=== PATIENT | female | born 1980 | race Caucasian/White ===

== ENCOUNTER 2023-04-06 07:46 | Outpatient (OUT) | payer OTHER, SELFPAY ==
[2023-04-06 09:05] LABS: Basophils Percent Auto 0.5 % (0.2-2.0); Eosinophils Absolute Auto 0.2 10^3/uL (0.0-0.7); Eosinophils Percent Auto 2.6 % (0.9-7.0); Hematocrit 39.4 % (36.0-48.0); Hemoglobin 13.3 g/dL (12.0-16.0); Immature Granulocytes Abs Auto 0.01 10^3/uL (0.00-0.03); Immature Granulocytes Pct Auto 0.2 % (0.0-0.5); Lymphocytes Absolute Auto 2.2 10^3/uL (1.2-3.8); Mean Corpuscular HGB Conc 33.8 g/dL (29.9-35.2); Mean Corpuscular Hemoglobin 30.4 pg (26.7-34.0); Mean Platelet Volume 9.3 fL (9.5-13.5); Monocytes Absolute Auto 0.5 10^3/uL (0.3-0.8); Monocytes Percent Auto 8.2 % (1.7-12.0); Neutrophils Absolute Auto 2.9 10^3/uL (1.4-6.5); Neutrophils Percent Auto 50.5 % (43.0-75.0); Platelet Count 201 10^3/uL (150-450); Red Blood Count 4.38 10^6/uL (4.20-5.40); Red Cell Distribution Width 12.4 % (11.0-15.0); White Blood Count 5.7 10^3/uL (4.0-11.0)
[2023-04-06 09:22] LABS: INR 0.97; Partial Thromboplastin Time 26.6 sec (22.3-36.2); Prothrombin Time 10.3 sec (9.0-11.6)
[2023-04-06 09:51] LABS: Alanine Aminotransferase 17 U/L (14-59); Albumin Globulin Ratio 1.1; Albumin Level 3.8 g/dL (3.4-5.0); Alkaline Phosphatase 52 U/L (46-116); Anion Gap 11.8; Aspartate Amino Transferase 11 U/L (15-37); BUN Creatinine Ratio 11.1; Bilirubin Direct 0.1 mg/dL (0.0-0.2); Bilirubin Total 0.3 mg/dL (0.2-1.0); Carbon Dioxide 28.3 mmol/L (21.0-32.0); Chloride 106 mmol/L (98-107); Estimated GFR (African America >60 (>=60); Estimated GFR (Non-African Ame >60 (>=60); Globulin 3.4 g/dL; Glucose 88 mg/dL (74-106); Potassium 4.1 mmol/L (3.5-5.1); Sodium 142 mmol/L (136-145); Total Protein 7.2 g/dL (6.4-8.2)
== END 2023-04-06 07:47 | disposition home or self-care (01) ==
PROVIDERS: Obstetrics & Gynecology; PCP Family Medicine
DX: Z01.812 Encounter for preprocedural laboratory examination (principal); N92.0 Excessive and frequent menstruation with regular cycle; N94.10 Unspecified dyspareunia; R10.2 Pelvic and perineal pain; N94.6 Dysmenorrhea, unspecified
CPT/HCPCS: 36415; 80048; 80076; 85025; 85610; 85730; G0463

== ENCOUNTER 2023-04-15 06:10 | Day surgery (SDC) | payer OTHER, SELFPAY ==
[2023-04-06 08:25] VITALS: BP 108/68; PULSE 85; RESP 16; TEMP 36.3; O2SAT 98; BMI 26.5
--- NOTE | 2023-04-06 08:50 | PM.PRESUREVA ---
History of Present Illness History of Present Illness Chief complaint: SURGICAL Narrative: Patient presents for preadmission testing. The patient reports heavy painful periods. The patient states she had tubal ligation, unilateral salpingectomy, and endometrial ablation but continues to have pain. She denies nausea, vomiting, fever, or any other complaints. Review of Systems ROS Narrative REVIEW OF SYSTEMS: Negative except as stated in HPI, ten or more systems reviewed. Constitutional: No fever , chills, weakness ENT: No sore throat or epistaxis Cardiovascular: No edema, chest pain, palpitations, or activity intolerance Respiratory: No shortness of breath, cough, or wheezing Musculoskeletal: No joint pain or swelling Genitourinary: No dysuria or hematuria Neurological: No numbness, tingling, weakness, or headache Psychiatric: No mood changes PFSH PFSH Medical History (Updated 04/06/23 @ 08:30 by Evelyn Reed NP) Surgical History (Updated 04/06/23 @ 08:30 by Evelyn Reed NP) Family History (Updated 04/06/23 @ 08:30 by Evelyn Reed NP) Other Family history of Alzheimer's disease Family history of heart disease Family history of lung cancer Family history of myocardial infarction Family history of stroke Social History (Updated 04/06/23 @ 08:25 by Evelyn Reed NP) Within the past year, how often did you have a drink containing alcohol: monthly or less Smoking status: Former smoker Non-prescribed substance use: denies use 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 Highest level of school completed/degree received: Associate degree: occupational, technical, vocational program Meds Home Medications and Allergies Allergies Allergy/AdvReac Type Severity Reaction Status Date / Time latex Allergy Rash Verified 04/06/23 08:21 Exam Narrative Exam Narrative: Constitutional: Awake, alert, comfortable, well-appearing, nontoxic, interactive, vital signs as charted Head: Normocephalic, atraumatic Neck: Supple, normal appearance, normal range of motion, no meningeal signs, no lymphadenopathy Respiratory: No respiratory distress, breath sounds clear Cardiovascular: Regular rate and rhythm, strong and regular heart tones Abdomen: Nontender, normal bowel sounds, soft, no CVA tenderness Musculoskeletal: Normal gait, no swelling or edema Skin: No rashes or induration, no lesions, only visible skin inspected Neuro: No neurological deficits, normal sensation Psychiatric: Oriented ?3, normal affect Constitutional Vital Signs - 24 hr 04/06/23 08:25 Temperature 97.3 F L Pulse Rate 85 Respiratory Rate 16 Blood Pressure [Right Arm] 108/68 Pulse Oximetry 98 Oxygen Delivery Method Room Air Assessment and Plan Assessment and Plan (1) Dysmenorrhea: (2) Dyspareunia: (3) Menorrhagia: (4) Pelvic pain: Plan Da Sylvia-assisted laparoscopic hysterectomy, possible cystoscopy, possible bilateral salpingo-oophorectomy, possible exploratory laparotomy scheduled with Dr. Weems 04/15/2023.
[2023-04-15] VITALS (13 sets, daily range): BP systolic 86–104; BP diastolic 51–78; PULSE 65–100; RESP 10–18; TEMP 36–37.4; O2SAT 96–99; BMI 25.8
[2023-04-15 06:21] LABS: Basophils Percent Auto 0.6 % (0.2-2.0); Eosinophils Absolute Auto 0.2 10^3/uL (0.0-0.7); Eosinophils Percent Auto 2.4 % (0.9-7.0); Hematocrit 38.9 % (36.0-48.0); Hemoglobin 13.1 g/dL (12.0-16.0); Immature Granulocytes Abs Auto 0.01 10^3/uL (0.00-0.03); Immature Granulocytes Pct Auto 0.2 % (0.0-0.5); Lymphocytes Absolute Auto 2.7 10^3/uL (1.2-3.8); Lymphocytes Percent Auto 42.3 % (20.5-60.0); Mean Corpuscular HGB Conc 33.7 g/dL (29.9-35.2); Mean Corpuscular Hemoglobin 30.8 pg (26.7-34.0); Mean Corpuscular Volume 91.3 fL (81.0-99.0); Mean Platelet Volume 9.5 fL (9.5-13.5); Monocytes Absolute Auto 0.4 10^3/uL (0.3-0.8); Neutrophils Percent Auto 47.5 % (43.0-75.0); Platelet Count 193 10^3/uL (150-450); Red Blood Count 4.26 10^6/uL (4.20-5.40); Red Cell Distribution Width 12.4 % (11.0-15.0); White Blood Count 6.3 10^3/uL (4.0-11.0)
[2023-04-15 06:38] LABS: HCG Quantitative <1 mIU/mL
[2023-04-15] MEDS: LACTATED RINGER'S SOLUTION 1,000 ML 50 ML IV ×2 (06:57→09:41)
[2023-04-15] MEDS: CEFAZOLIN SODIUM/DEXTROSE,ISO 1 GM/50 ML IV.SOLN IV (07:56)
--- NOTE | 2023-04-15 09:47 | PC.NURSE ---
16FR KEYS PLACED INTROP PER DANIEL MÉNDEZ FOLEY DISCONTINUED AT END OF CASE, 150ML CLEAR YELLOW URINE IN BAG
[2023-04-15] MEDS: MEPERIDINE HCL/PF 25 MG/ML VIAL IVP (10:25)
--- NOTE | 2023-04-15 10:35 | PC.NURSE ---
Dressings x 4 continue clean dry and intact to abdomen.
[2023-04-15] MEDS: PROMETHAZINE HCL 25 MG/ML VIAL 12.5 MG IV (13:06)
[2023-04-15] MEDS: CEFAZOLIN SODIUM/DEXTROSE,ISO 2 GM/50 ML PIGGYBACK IV ×2 (13:07→20:04)
[2023-04-15] MEDS: SIMETHICONE 80 MG TAB.CHEW PO ×2 (13:07→18:18)
[2023-04-15 16:01] LABS: Hematocrit 36.8 % (36.0-48.0); Hemoglobin 12.5 g/dL (12.0-16.0); Immature Granulocytes Abs Auto 0.01 10^3/uL (0.00-0.03); Immature Granulocytes Pct Auto 0.1 % (0.0-0.5); Lymphocytes Absolute Auto 0.8 10^3/uL (1.2-3.8); Lymphocytes Percent Auto 10.8 % (20.5-60.0); Mean Corpuscular Hemoglobin 30.6 pg (26.7-34.0); Mean Corpuscular Volume 90.2 fL (81.0-99.0); Mean Platelet Volume 9.6 fL (9.5-13.5); Monocytes Absolute Auto 0.4 10^3/uL (0.3-0.8); Monocytes Percent Auto 5.3 % (1.7-12.0); Neutrophils Absolute Auto 6.2 10^3/uL (1.4-6.5); Neutrophils Percent Auto 83.8 % (43.0-75.0); Platelet Count 169 10^3/uL (150-450); Red Blood Count 4.08 10^6/uL (4.20-5.40); Red Cell Distribution Width 12.2 % (11.0-15.0); White Blood Count 7.4 10^3/uL (4.0-11.0)
[2023-04-15 16:06] LABS: Estimated GFR (African America >60 (>=60); Estimated GFR (Non-African Ame >60 (>=60)
--- NOTE | 2023-05-12 19:36 | P.ON_ITS ---
Brief Operative Note Date of procedure: 04/15/23 Pre-op diagnosis: pelvic pain, dysmenorrhea, dyspareunia, menorrhagia Post-op diagnosis: same Procedure: NAME OF PROCEDURE: ? Robotic assisted laparoscopic hysterectomy with cystoscopy, bilateral salpingectomy PROCEDURE:? The patient was taken back to the operating room, where she was prepped and draped in the normal sterile fashion after being placed in the dorsal lithotomy position.? Patient?s anesthesia was found to be adequate.? Surgical timeout was performed using two patient identifiers.? SCDs were on and in place.? Two grams of Ancef were given prior to the surgery.? Sterile Farmer catheter was inserted.? Standard size VCare was secured to the uterine cervix and the surgeon changed gloves.? Attention then was turned to the patient's abdomen, where a supraumbilical incision was then made.? Two S retractors were used to identify the patient?s fascia.? The fascia was then tented up using Addison clamps and the patient?s fascia was incised sharply.? Patient?s abdomen was identified and entered bluntly.? The patient had the trocar placed and a pneumoperitoneum was obtained.? Approximately 4 liters of CO2 gas was used.? The camera was then placed through the trocar.? At this time, two robot trocars were placed in the patient?s left and right side, two hand widths from the midline, and this was placed under direct visualization.? The patient?s tube on the right side was tented up and the vessel sealer was then used to come across the mesosalpinx, and this was carried down to the uterine ovarian ligament.? The vessel sealer was carried down serially to the broad ligament, to the area of the bladder flap, which was then created anteriorly, and the uterine arteries were skeletonized and sealed using the vessel sealer.? The colpotomy was made using the monopolar cautery on cut, and this was carried circumferentially, posteriorly to anteriorly, until the uterus was amputated.? The specimen was then removed intact through the vagina, without difficulty.? The vagina was then closed using two running V-Loc in a non-lock fashion.? The robot was undocked.? The abdomen was desufflated.? The skin defects were closed using 4-0 Vicryl.? Please note, the fascia was closed using 0 Vicryl.? Sponge, lap and needle counts were correct x2.? Patient was taken to recovery room in stable condition.? The patient was awakened by Anesthesia first.? Patient tolerated procedure well.??Please note left ovarian cystectomy was performed using the vessel sealer Anesthesia: JOSE E Surgeon: Rafael Weems Graphite Disk Assembler: Alaina Celis Estimated blood loss (mL): 50 Pathology: other (uterus and tubes) Condition: stable Disposition: floor
== END 2023-04-15 20:45 | disposition home or self-care (01) ==
LOC: SURGOUT 11:49 → MS 11:50
PROVIDERS: PCP Family Medicine; Visit Provider Obstetrics & Gynecology
PROC: (CPT 58571; principal; 2023-04-15 07:30)
DX: N92.0 Excessive and frequent menstruation with regular cycle (principal); R10.2 Pelvic and perineal pain; N94.10 Unspecified dyspareunia; N94.6 Dysmenorrhea, unspecified; N72 Inflammatory disease of cervix uteri; Z87.891 Personal history of nicotine dependence
CPT/HCPCS: 58571; 36415; 82565; 84520; 84702; 85025; 86850; 86900; 86901; 88307; J2704

== ENCOUNTER 2024-10-31 20:33 | Outpatient (REF) | payer OTHER, SELFPAY ==
[2024-11-05 20:07] LABS: Age Gdln ACOG Testing Note (.); HPV Aptima Negative (Negative); IGP, Aptima HPV, rfx 16/18,45 Note (.)
== END 2024-10-31 20:34 | disposition home or self-care (01) ==
LOC: LAB 20:33
PROVIDERS: PCP Family Medicine; Visit Provider Physician Assistant
DX: Z01.419 Encounter for gynecological examination (general) (routine) without abnormal findings (principal)
CPT/HCPCS: 87624; 88175